=== PATIENT | male | born 1990 | race Caucasian/White ===

== ENCOUNTER → 2020-09-02 13:59 | Outpatient (REF) | payer MEDICAID, SELFPAY | LOC: HO.SL 13:59 | PROVIDERS: PCP Internal Medicine Geriatric Medicine; Visit Provider Internal Medicine Geriatric Medicine | DX: Z13.89 Encounter for screening for other disorder (principal) ==

== ENCOUNTER 2021-06-04 08:59 | Emergency (ER) | payer MEDICAID, SELFPAY | END 2021-06-04 11:07 | disposition left against medical advice (07) | PROVIDERS: Emergency Provider Emergency Medicine; PCP Internal Medicine Geriatric Medicine | DX: H92.03 Otalgia, bilateral (principal) ==

== ENCOUNTER 2021-12-10 12:16 | Emergency (ER) | payer MEDICAID, SELFPAY ==
[2021-12-10 12:39] VITALS: BP 167/104; PULSE 93; RESP 18; TEMP 36.8; O2SAT 97; BMI 38.6
[2021-12-10] MEDS: Ibuprofen 600 MG TABLET PO (15:39)
[2021-12-10] MEDS: Amoxicillin 500 MG CAPSULE PO (15:39)
--- NOTE | 2021-12-10 18:46 | ED.EAR ---
HPI - Ear Problem General Chief complaint: Ear Problems Stated complaint: ear pain Time Seen by Provider: 12/10/21 15:23 History of Present Illness HPI Narrative: Patient complains of left ear pain for 3 days getting worse, no fever no headache no dizziness no weakness no sinus congestion Related Data Previous Rx's Medication Instructions Recorded acetaminophen 500 mg tablet 1,000 mg PO QID PRN pain #30 tabs 12/10/21 amoxicillin 500 mg tablet 500 mg PO TID 7 days #21 tabs 12/10/21 ciprofloxacin 0.3 %-dexamethasone 4 drp otic (ears) BID 7 days #7.5 12/10/21 0.1 % ear drops,suspension mL ibuprofen 600 mg tablet 600 mg PO Q6H PRN pain #20 tabs 12/10/21 oxycodone 5 mg tablet 5 mg PO Q6H PRN pain #10 tabs 12/10/21 oxycodone 5 mg tablet 5 mg PO Q6H PRN pain #14 tabs 12/10/21 Allergies Allergy/AdvReac Type Severity Reaction Status Date / Time No Known Allergies Allergy Unverified 02/19/20 18:31 Review of Systems Review of Systems: Positive for left ear pain Negatives are no fever no chills no dizziness weakness no headache no fainting no feeling faint no sinus congestion no sinus pain no sore throat no cough no runny nose no difficulty breathing or swallowing no numbness weakness or tingling Yes all other systems are reviewed and are negative [facility] Past Medical History Source: nursing notes reviewed Social History Social History Advance Directives: No Advance Directives Information Provided: No Physical Exam Vital Signs: Vital Signs: Last Vital Signs Temp 98.2 F 12/10/21 12:39 Pulse 93 12/10/21 12:39 Resp 18 12/10/21 12:39 BP 167/104 H 12/10/21 12:39 Pulse Ox 97 12/10/21 12:39 O2 Del Method 12/10/21 12:39 BMI result Body Mass Index 38.6 General appearance no distress Eyes no discharge no redness The ears the right ear is normal, left ear showed a narrowed canal with a small portion of tympanic membrane visible which was not red, the canal was red and inflamed, there was pain with movement of the ear and pressure on the tragus, no mastoid redness or tenderness no surrounding erythema The sinuses are nontender The pharynx is clear no redness swelling or exudate Neck is supple Respiratory no distress Skin no rashes Course Course Course Narrative: Patient with otitis externa is treated with Ciprodex, amoxicillin and analgesics and well-appearing patient is discharged Discharge Plan Discharge Clinical Impression: Otitis externa Patient Disposition: Home, Self-Care Additional Instructions: Your left ear canal was very swollen so the main treatment is the drops I will prescribe, as well as the antibiotic Motrin and Tylenol for pain as needed, and if your home you can take the oxycodone which is a narcotic which can be sedating so no driving when you take oxycodone Follow with primary doctor if not better in 2 or 3 days, if you are getting frequent ear infections he may refer you to an 2 year olds preschool teacher Return any time for any worse condition or any concerns to the ER specially if you develop fever or worse pain and swelling in the ear Your blood pressure was 167/104 which may be from the fact that your in pain but it also may be that her blood pressure medications are not working as well as they used to Best plan is get a home blood pressure cuff, keep a log of the readings and follow with your doctor within a few weeks for further evaluation of blood pressure Prescriptions: New amoxicillin 500 mg tablet 500 mg PO TID 7 Days Qty: 21 0RF ibuprofen 600 mg tablet 600 mg PO Q6H PRN (Reason: pain) Qty: 20 0RF ciprofloxacin-dexamethasone 0.3-0.1 % drops,suspension 4 drp otic (ears) BID 7 Days Qty: 7.5 0RF acetaminophen 500 mg tablet 1,000 mg PO QID PRN (Reason: pain) Qty: 30 0RF oxycodone 5 mg tablet 5 mg PO Q6H PRN (Reason: pain) Qty: 10 0RF Rx Instructions: Partial Fill upon patient request. oxycodone 5 mg tablet 5 mg PO Q6H PRN (Reason: pain) Qty: 14 0RF Rx Instructions: Partial Fill upon patient request. Narcotic, no driving for 6 hours after taking Interventions: ED Discharge Assessment Last Done: 12/10/21 15:45 Discharge Date/Time: 12/10/21 15:46
== END 2021-12-10 15:46 | disposition home or self-care (01) ==
PROVIDERS: Emergency Provider Emergency Medicine
DX: H60.92 Unspecified otitis externa, left ear (principal)
CPT/HCPCS: 99283

== ENCOUNTER 2024-01-07 19:13 | Emergency (ER) | payer BC, SELFPAY ==
--- NOTE | ~2024-01-07 | CT_ITS ---
EXAMINATION: CT HEAD WITHOUT CONTRAST CLINICAL INFORMATION: Headache. Hypertension. COMPARISON: None available. TECHNIQUE: Contiguous axial imaging was performed from the skull base to vertex without intravenous administration of contrast. This CT examination was performed using dose optimization techniques as appropriate, variously including the following: *Automated exposure control *Adjustment of mA and/or kV according to patient size (this includes techniques or standardized protocols for targeted exams where dose is matched to indication/reason for exam; i.e. extremities or head) *Use of iterative reconstruction technique DLP: 705 mGy-cm FINDINGS: The lateral, third and fourth ventricles are normally outlined. The cortical sulci and basal cisterns are normally out well. There is no acute territorial defect, hemorrhage or midline shift. The extra-axial spaces are unremarkable. Calvarium/scalp: Intact. Maxillofacial sinuses and mastoids: Clear as visualized. CT/CT head/brain wo IV con IMPRESSION: No acute intracranial pathology.
[2024-01-07 20:22] VITALS: BP 178/108; PULSE 94; RESP 16; TEMP 37; O2SAT 99; BMI 41.8
--- NOTE | 2024-01-07 20:33 | ED.GENADULT ---
HPI - General Adult General Chief complaint: General Medical Stated complaint: HBP & headache Time Seen by Provider: 01/08/24 01:35 Source: patient Mode of arrival: ambulatory Limitations: no limitations History of Present Illness ED Provider: edgardo CHOWDHURY narrative: Patient is 33 years old with history of hypertension for about 2 years for last 1 month not taking his amlodipine 5 mg as he supposed to did not take his medicine for last 1 week today since afternoon noticed headache heaviness checked his blood pressure was elevated to 188/118, no nausea no vomiting no fever or chills no chest pain no blurred vision no urinary discomfort does complain of headache which is diffuse patient took 10 mg of amlodipine at around 17:00 on arrival blood pressure 170/108 Related Data Previous Rx's ?Medication ?Instructions ?Recorded acetaminophen 500 mg tablet 1,000 mg (2 x 500 mg) PO QID PRN 12/10/21 pain #30 tabs amoxicillin 500 mg tablet 500 mg PO TID 7 days #21 tabs 12/10/21 ciprofloxacin 0.3 %-dexamethasone 4 drp otic (ears) BID 7 days #7.5 12/10/21 0.1 % ear drops,suspension mL ibuprofen 600 mg tablet 600 mg PO Q6H PRN pain #20 tabs 12/10/21 oxycodone 5 mg tablet 5 mg PO Q6H PRN pain #10 tabs 12/10/21 oxycodone 5 mg tablet 5 mg PO Q6H PRN pain #14 tabs 12/10/21 amlodipine 10 mg tablet 10 mg PO DAILY #90 tabs 01/08/24 losartan 50 mg-hydrochlorothiazide 1 tab PO DAILY #90 tabs 01/08/24 12.5 mg tablet Allergies Allergy/AdvReac Type Severity Reaction Status Date / Time No Known Allergies Allergy Verified 01/07/24 20:25 Review of Systems Review of Systems: Yes all other systems are reviewed and are negative PMFSH Social History Social History Advance Directives: No Advance Directives Information Provided: No Physical Exam ED Vital Signs: Vital Signs - 24 hr 01/07/24 20:22 01/08/24 00:50 01/08/24 01:59 Temperature 98.6 F 98 F Pulse Rate 94 82 79 Respiratory Rate 16 16 17 Blood Pressure 178/108 H 171/114 H 181/115 H Pulse Oximetry 99 98 96 Oxygen Delivery Method Room Air Room Air Room Air 01/08/24 02:26 01/08/24 03:04 Temperature 98 F Pulse Rate 76 76 Respiratory Rate 17 17 Blood Pressure 165/100 H 165/100 H Pulse Oximetry 98 98 Oxygen Delivery Method Room Air BMI result Body Mass Index 41.8 Appearance: Alert. Oriented X3. No acute distress. Eyes: PERRLA, No Nystagmus ENT: Pharynx normal. Oral Mucosa moist Neck: Normal inspection. Neck supple. CVS: Normal heart rate and rhythm. Pulses normal. Respiratory: No respiratory distress. Equal air entry bilateral, no wheezing/rales/rhonchi Abdomen: Soft and nontender. Bowel sounds are present, no mass palpable, no CVA tenderness Skin: Skin warm and dry. Normal skin color. Normal skin turgor. Extremities: No lower extremity edema. No calf tenderness Neuro: Oriented X 3. No motor deficit. No sensory deficit.No cerebellar signs , cranial nerves II-XII intact Course Course Course Narrative: RME: done by CRISTIAN Hui. 33-year-old male presents ED for elevated blood pressure and headache. Patient states at home systolic was 190/124. Patient admits to not being compliant with his high blood pressure medication. NIH score is 0. Negative for neuro deficits. Labs EKG ordered Medications Administered Discontinued Medications Generic Name Dose Route Start Last Admin Trade Name Freq PRN Reason Stop Dose Admin Clonidine HCl 0.2 mg 01/08/24 01:42 01/08/24 02:01 Clonidine Hcl 0.2 Mg Tablet PO 01/08/24 01:43 0.2 mg ONCE ONE Administration Protocol Losartan Potassium 50 mg 01/08/24 01:42 01/08/24 02:01 Losartan Potassium 50 Mg Tablet PO 01/08/24 01:43 50 mg ONCE ONE Administration Protocol Medical Decision Making Medical Decision Making [facility] Narrative: Patient's accelerated hypertension secondary noncompliant to his idea hypotensive medication had slight headache no nausea no vomiting CT head was negative patient's blood pressure improved after giving losartan and clonidine patient patient re educated and reinforced about importance of taking his medications on time will add losartan to his regimen Differential Diagnosis Differential Diagnoses: The differential diagnosis associated with the presentation includes Accelerated hypertension/subarachnoid hemorrhage/ Admission/Observation Consideration of admission/observation: Escalation of care including admission/observation considered Lab Data MDM Lab Attestation statement: I reviewed the patient's lab results. 01/07/24 20:51 01/07/24 20:51 Labs: Lab Results 01/07/24 Range/Units 20:51 WBC 8.3 (4.8-10.8) X10*3/uL RBC 5.12 (4.60-5.80) X10*6/uL Hgb 14.6 (14.0-18.0) g/dl Hct 41.2 L (42.0-52.0) % MCV 80.5 (80.0-98.0) fL MCH 28.5 (27.0-33.0) pg MCHC 35.4 (31.0-36.0) g/dl RDW 12.6 (11.0-16.0) % Plt Count 219 (160-400) X10*3/uL MPV 10.3 (9.4-12.4) fL Immature Gran % (Auto) 0.5 H (0.0-0.4) % Neut % (Auto) 53.8 (45-73) % Lymph % (Auto) 32.8 (20-40) % [place] % (Auto) 8.4 (2-11) % Eos % (Auto) 3.4 (0-4) % Baso % (Auto) 1.1 (0-2) % Lymph # (Auto) 2.7 (1.2-4.9) X10*3/uL [place] # (Auto) 0.7 (0.1-1.2) X10*3/uL Eos # (Auto) 0.3 (0.0-0.4) X10*3/uL Baso # (Auto) 0.1 (0.0-0.2) X10*3/uL Abs Immat Gran (auto) 0.04 H (0.00-0.03) X10*3/uL Absolute Neuts (auto) 4.5 (2.0-8.3) x10*3/uL Absolute Nucleated RBC 0.000 (0.0-0.012) X10*3/uL Nucleated RBC % (auto) 0.0 (0.0-0.2) /100WBC PT 11.7 (11.1-13.3) SEC INR 1.0 (0.9-1.1) APTT 29.4 (26.0-36.8) SEC Sodium 137 (135-145) mmol/L Potassium 4.2 (3.3-5.1) mmol/L Chloride 107 (96-108) mmol/L Carbon Dioxide 21 L (22-29) mmol/L Anion Gap 13 (12-20) BUN 19 H (9-16) mg/dL Creatinine 1.09 (0.5-1.4) mg/dL Estim Creat Clear Calc 122.8 Estimated GFR > 60 Random Glucose 135 H (60-115) mg/dL Calcium 8.8 (8.4-10.2) mg/dL Total Bilirubin 0.2 (0.0-1.0) mg/dL AST 22 (5-37) U/L ALT 30 (0-40) U/L Alkaline Phosphatase 77 (39-117) U/L Troponin I High Sens < 2.7 (<3.5-35.0) ng/L Total Protein 7.6 (6.5-8.0) g/dL Albumin 3.9 (3.5-5.0) g/dL Independent Interpretation I performed an independent interpretation of an: EKG and CT Scan Interpretation: Normal sinus rhythm heart rate 89 beats per minute normal interval normal axis no acute ST T wave changes no acute ischemia Radiology Impression Discussion of test interpretation with radiology: I have reviewed the radiologist's reading. Radiologist Impression: Negative for acute Discharge Plan Discharge Clinical Impression: Hypertension, uncontrolled Patient Disposition: Home, Self-Care Instructions: Chronic Hypertension (ED) Additional Instructions: Decrease salt intake Increase the dose of amlodipine to 10 mg daily Start taking losartan/hctz 50/12.5 mg daily Follow with your PCP Check your blood pressure before taking the medicine and before going to bed it should be less than 135/85 Prescriptions: New amlodipine 10 mg tablet 10 mg PO DAILY Qty: 90 0RF losartan-hydrochlorothiazide 50-12.5 mg tablet 1 tab PO DAILY Qty: 90 0RF No Action amoxicillin 500 mg tablet 500 mg PO TID 7 Days Qty: 21 0RF ibuprofen 600 mg tablet 600 mg PO Q6H PRN (Reason: pain) Qty: 20 0RF ciprofloxacin-dexamethasone 0.3-0.1 % drops,suspension 4 drp otic (ears) BID 7 Days Qty: 7.5 0RF acetaminophen 500 mg tablet 1,000 mg PO QID PRN (Reason: pain) Qty: 30 0RF oxycodone 5 mg tablet 5 mg PO Q6H PRN (Reason: pain) Qty: 10 0RF Rx Instructions: Partial Fill upon patient request. oxycodone 5 mg tablet 5 mg PO Q6H PRN (Reason: pain) Qty: 14 0RF Rx Instructions: Partial Fill upon patient request. Narcotic, no driving for 6 hours after taking Interventions: ED Discharge Assessment Last Done: 01/08/24 03:04 Discharge Date/Time: 01/08/24 03:05 Print Language: [place]
--- NOTE | 2024-01-07 20:34 | ECG_ITS ---
Test Reason : HTN Blood Pressure : / mmHG Vent. Rate : 089 BPM Atrial Rate : 089 BPM P-R Int : 172 ms QRS Dur : 098 ms QT Int : 360 ms P-R-T Axes : 039 021 017 degrees QTc Int : 438 ms Normal sinus rhythm Normal ECG No previous ECGs available Referred By: Lj Hui Electronically Signed By:MAREN VARGAS MD
[2024-01-07 20:55] LABS: MANUAL DIFF FLAG NO
[2024-01-07 20:57] LABS: Basophils Absolute Auto 0.1 X10*3/uL (0.0-0.2); Basophils Percent Auto 1.1 % (0-2); Eosinophils Absolute Auto 0.3 X10*3/uL (0.0-0.4); Eosinophils Percent Auto 3.4 % (0-4); Hematocrit 41.2 % (42.0-52.0); Hemoglobin 14.6 g/dl (14.0-18.0); Imm Gran Abs Auto 0.04 X10*3/uL (0.00-0.03); Imm Gran Pct Auto 0.5 % (0.0-0.4); Lymphocytes Absolute Auto 2.7 X10*3/uL (1.2-4.9); Lymphocytes Percent Auto 32.8 % (20-40); Mean Corpuscular HGB Conc 35.4 g/dl (31.0-36.0); Mean Corpuscular Hemoglobin 28.5 pg (27.0-33.0); Mean Corpuscular Volume 80.5 fL (80.0-98.0); Mean Platelet Volume 10.3 fL (9.4-12.4); Monocytes Absolute Auto 0.7 X10*3/uL (0.1-1.2); Monocytes Percent Auto 8.4 % (2-11); Neutrophils Absolute Auto 4.5 x10*3/uL (2.0-8.3); Neutrophils Percent Auto 53.8 % (45-73); Platelet Count 219 X10*3/uL (160-400); Red Blood Count 5.12 X10*6/uL (4.60-5.80); Red Cell Distribution Width 12.6 % (11.0-16.0); White Blood Count 8.3 X10*3/uL (4.8-10.8)
[2024-01-07 21:02] LABS: Prothrombin Time 11.7 SEC (11.1-13.3)
[2024-01-07 21:05] LABS: Partial Thromboplastin Time 29.4 SEC (26.0-36.8)
[2024-01-07 21:21] LABS: Troponin-I High Sensitivity < 2.7 ng/L (<3.5-35.0)
[2024-01-07 21:50] LABS: Anion Gap 13 (12-20)
[2024-01-07 21:54] LABS: Alanine Aminotransferase 30 U/L (0-40); Albumin Level 3.9 g/dL (3.5-5.0); Alkaline Phosphatase 77 U/L (39-117); Aspartate Amino Transferase 22 U/L (5-37); Bilirubin Total 0.2 mg/dL (0.0-1.0); Blood Urea Nitrogen 19 mg/dL (9-16); Calcium 8.8 mg/dL (8.4-10.2); Carbon Dioxide 21 mmol/L (22-29); Chloride 107 mmol/L (96-108); Creatinine Clr Calc Pharmacy 122.8; Estimated Glomerular Filt Rate > 60; Glucose Random 135 mg/dL (60-115); Potassium 4.2 mmol/L (3.3-5.1); Sodium 137 mmol/L (135-145); Total Protein 7.6 g/dL (6.5-8.0)
[2024-01-08 00:50] VITALS: BP 171/114; PULSE 82; RESP 16; TEMP 36.6; O2SAT 98
[2024-01-08 01:59] VITALS: BP 181/115; PULSE 79; RESP 17; O2SAT 96
[2024-01-08] MEDS: Losartan Potassium 50 MG TABLET PO (02:01)
[2024-01-08] MEDS: cloNIDine HCL 0.2 MG TABLET PO (02:01)
[2024-01-08 02:26] VITALS: BP 165/100; PULSE 76; RESP 17; O2SAT 98
[2024-01-08 03:04] VITALS: BP 165/100; PULSE 76; RESP 17; TEMP 36.6; O2SAT 98
== END 2024-01-08 03:05 | disposition home or self-care (01) ==
PROVIDERS: Physician Assistant; Emergency Provider Internal Medicine; PCP Internal Medicine Geriatric Medicine
DX: R51.9 Headache, unspecified (principal); I10 Essential (primary) hypertension; Z79.899 Other long term (current) drug therapy; Z91.148 Patient's other noncompliance with medication regimen for other reason; Z51.81 Encounter for therapeutic drug level monitoring
CPT/HCPCS: 36415; 70450; 80053; 84484; 85025; 85610; 85730; 93005; 99284

== ENCOUNTER → 2024-01-07 20:34 | Outpatient (BNV) | payer BC, SELFPAY | PROVIDERS: Emergency Provider Internal Medicine; PCP Internal Medicine Geriatric Medicine; Visit Provider Internal Medicine Cardiovascular Disease | DX: I10 Essential (primary) hypertension (principal) | CPT/HCPCS: 93010 ==

== ENCOUNTER 2024-10-03 10:14 | Outpatient (REF) | payer SELFPAY ==
[2024-10-03 11:08] LABS: MANUAL DIFF FLAG NO
--- OUTSIDE RECORDS SUMMARY | 2024-10-03 11:17 | XMS_ITS | Encounter Summary ---
Author Organization [employer] Address [address] [place] [address] [address] [place] [address] Care Team Providers Care Instrumentation Supervisor Name Role Phone Romeo Chakraborty MD Primary Care Provider [phone] Reason for Referral * Consultation (Routine) - Pending Review Specialty Diagnoses / Procedures Referred By Juanjo t Referred To Contact Sleep Medicine Diagnoses Hypersomnia Loud snoring Tiredness Romeo Chakraborty MD [address] [place] [id number] Phone: tel: fax: Referral ID Status Reason Start Date Expiration Date Visits Requested Visits Authorized [id number] Pending Review Specialty Services Required 10/03/2024 10/03/2025 1 1 Reason for Visit * Reason Comments Hypertension Encounter Details Date Type Department Care Team ([facility] st Contact Info) Description 10/03/2024 10:00 AM EDT Office Visit [facility] MEDICINE [address] [place] [address] [id number] Romeo Chakraborty MD [address] [place], [place] [phone] Primary hypertension (Primary Dx); Tiredness; Hypersomnia; Loud snoring; Prediabetes; Elevated lipids Social History Tobacco Use Types Packs/Day Years Used Date Smoking Tobacco: Never Smokeless Tobacco: Never Tobacco Cessation:Counseling Given: Not Answered Alcohol Use Standard Drinks/Week Comments Not Currently 0 (1 standard drink = 0.6 oz pur e alcohol) occassional Depression Answer Date Recorded Patient Health Questionnaire-9 Score 12 10/03/2024 Patient Health Questionnaire-9 Score 12 10/03/2024 Last PHQ-9: Questionnaire Data Not on file 0 10/03/2024 Housing Stability Answer Date Recorded What is your housing situation today? I have jay thompson 10/03/[address] you li ve. Do you have problems with any of the following? None of the above 10/03/2024 Food Insecurity Answer Date Recorded Within the past 12 months, y ou worried that your food would run out before you got money to buy more: Never True 10/03/2024 Within the past 12 months,th e food you bought just didn't last and you didn't have enough money to get more: Never True 07/2024 Transportation Answer Date Recorded In the past 12 months, has l ack of transportation kept you from medical appts, meetings, work or from getting things needed for daily living? No 10/03/2024 Utilities Answer Date Recorded In the past 12 months, has t he electric, gas, oil or water company threatened to shut off services in your home? Yes 10/03/2024 Depression Answer Date Recorded Patient Health Questionnaire-2 Score 0 10/03/2024 Internet Access Answer Date Recorded Internet Access Q1 Yes 10/03/2024 Internet Access Q2 Not on file 10/03/2024 Sex and Gender Information Value Date Recorded Sex Assigned at Male 04/03/2022 10:35 AM EDT Legal Sex Male 10:35 AM EDT Gender Identity Male 04/03/2022 10:35 AM EDT Sexual Orientation Straight 04/03/2022 10 :35 AM EDT documented as of this encounter Last Filed Vital Signs Vital Sign Reading Time Taken Comments Blood Pressure 146/97 10/03/2024 9:45 AM EDT Pulse 98 10/03/2024 9:45 AM EDT Temperature 36.2 ??C (97.1 ??F) 10/03/2024 9:45 AM ED T Respiratory Rate 18 10/03/2024 9:45 AM EDT Oxygen Saturation 97% 10/03/2024 9:45 AM EDT Inhaled Oxygen Concentration - - Weight 127 kg (279 lb 3.2 oz) 10/03/2024 9:45 AM EDT Height 172.7 cm (5' 8 ) 10/03/2024 9:45 AM EDT Body Mass Index 42.45 10/03/2024 9:45 AM EDT documented in this encounter Progress Notes * Romeo Chakraborty MD - 10/03/2024 10:00 AM EDT Subjective Patient ID: Neftali Soler is a 34 y.o. male who presents for Hypertension. The patient is returning to medical care. He was lost to follow-up for about a year because he did not have medical insurance. He is morbidly obese, hypertensive, prediabetes, and clinically he has PRIYA. He has not been using his medications regularly. We never got the results of the home sleep testhe had in the past. Today his BP is elevated. The patient has typical history of obstructive sleep apnea including snoring, tiredness, daytime sleepiness, lack of refreshing sleep, witnessed apnea overnight and occasional morning headaches. Review of Systems Constitutional: Negative for chills, fatigue and fever. HENT: Negative for sore throat. Respiratory: Negative for cough, chest tightness and shortness of breath. See HPI Cardiovascular: Negative for chest pain, palpitations and leg swelling. Gastrointestinal: Negative for abdominal pain and blood in stool. Visit Vitals BP (!) 146/97 (BP Location: Right arm, Patient Position: Sitting, BP Cuff Size: Large adult) Pulse 98 Temp 97.1 ??F (36.2 ??C) (Temporal) Resp 18 Ht 5' 8 (1.727 m) Wt 279 lb 3.2 oz (127 kg) SpO2 97% BMI 42.45 kg/m?? Smoking Status Never BSA 2.47 m?? Objective Physical Exam Constitutional: Appearance: Normal appearance. HENT: Head: Comments: Patient has a large neck and crowded oropharynx. He has darkening of the posterior neck skin consistent with acanthosis nigricans. Cardiovascular: Rate and Rhythm: Normal rate and regular rhythm. Heart sounds: No murmur heard. Pulmonary: Effort: Pulmonary effort is normal. No respiratory distress. Breath sounds: No wheezing, rhonchi or rales. Abdominal: Palpations: Abdomen is soft. Tenderness: There is no abdominal tenderness. Musculoskeletal: Right lower leg: No edema. Left lower leg: No edema. Neurological: Mental Status: He is alert. Assessment/Plan Diagnoses and all orders for this visit: Primary hypertension Comments: I will restart the patient on antihypertensives and statin for primary prevention of cardiovasculardisease. I will refer the patient to sleep medicine at [facility] I recommended evaluation with fasting blood work listed below and further recommendation based on the results. Orders: - Comprehensive Metabolic Panel; Future - Hemoglobin A1c; Future - Lipid Panel, Standard; Future - TSH W/Reflex to FT4; Future - losartan-hydroCHLOROthiazide (Hyzaar) 50-12.5 MG tablet; Take 1 tablet by mouth Once per day. - amLODIPine (Norvasc) 10 MG tablet; Take 1 tablet (10 mg) by mouth Once per day. Tiredness - CBC auto differential; Future - Referral to Sleep Medicine; Future Hypersomnia - Comprehensive Metabolic Panel; Future - Hemoglobin A1c; Future - Lipid Panel, Standard; Future - TSH W/Reflex to FT4; Future - Referral to Sleep Medicine; Future Loud snoring - Comprehensive Metabolic Panel; Future - Hemoglobin A1c; Future - Lipid Panel, Standard; Future - TSH W/Reflex to FT4; Future - Referral to Sleep Medicine; Future Prediabetes - Comprehensive Metabolic Panel; Future - Hemoglobin A1c; Future - Lipid Panel, Standard; Future - TSH W/Reflex to FT4; Future Elevated lipids - Comprehensive Metabolic Panel; Future - Hemoglobin A1c; Future - Lipid Panel, Standard; Future - TSH W/Reflex to FT4; Future - atorvastatin (Lipitor) 20 MG tablet; Take 1 tablet (20 mg) by mouth Once per day. documented in this encounter Plan of Treatment Scheduled Orders Name Type Priority Associated Diagnoses Orde r Schedule Comprehensive Metabolic Panel Lab Routine Hypersomnia Loud snoring Primary hypertension Prediabetes Elevated lipids Expected: 10/03/2024 (Approximate), Expires: 10/03/2025 Hemoglobin A1c Lab Routine Hypersomnia Loud snoring Primary hypertension Prediabetes Elevated lipids Expected: 10/03/2024 (Approximate), Expires: 10/03/2025 Lipid Panel, Standard Lab Routine Hypersomnia Loud snoring Primary hypertension Prediabetes Elevated lipids Expected: 10/03/2024 (Approximate), Expires: 10/03/2025 TSH W/Reflex to FT4 Lab Routine Hypersomnia Loud snoring Primary hypertension Prediabetes Elevated lipids Expected: 10/03/2024 (Approximate), Expires: 10/03/2025 CBC auto differential Lab Routine Tiredness Expected: 10/03/2024 (Approximate), Expires: 10/03/2025 Scheduled Referrals Name Type Priority Associated Diagnoses Orde r Schedule Referral to Sleep Medicine Outpatient Referral Routine Hypersomnia Loud snoring Tiredness Expected: 10/03/2024 (Approximate), Expires: 10/03/2025 documented as of this encounter Visit Diagnoses Diagnosis Primary hypertension- Primary Unspecified essential hypertension Tiredness Other malaise and fatigue Hypersomnia Hypersomnia, unspecified Loud snoring Prediabetes Other abnormal glucose Elevated lipids documented in this encounter Additional Health Concerns Assessment Noted Time PHQ-9 Depression Total Score: 12 025 10:13 AM EDT documented as of this encounter Care Teams Instrumentation Supervisor Relationship Specialty Start Date End Date Name, MD Romeo [address] [place] [address] PCP - General Family Medicine 07/31/18 documented as of this encounter
--- OUTSIDE RECORDS SUMMARY | 2024-10-03 11:17 | XMS_ITS | Encounter Summary ---
Author Organization [employer] Address [address] [facility] [address] [place] [address] Care Team Providers Care Associate Professor Of Economics Name Role Phone Name, Romeo MCKINLEY Primary Care Provider [phone] Encounter Details Date Type Department Care Team (Latest Contact Info) Description 10/02/2024 Travel Social History Tobacco Use Types Packs/Day Years Used Date Smoking Tobacco: Never Smokeless Tobacco: Never Alcohol Use Standard Drinks/Week Comments Yes 0 (1 standard drink = 0.6 oz [...] AM EDT documented as of this encounter Plan of Treatment Not on file documented as of this encounter Visit Diagnoses Not on filedocumented in this encounter Care Teams Associate Professor Of Economics Relationship Specialty Start Date End Date Name, MD Romeo [address] [place] [id number] PCP - General Family Medicine 07/31/18 documented as of this encounter
--- OUTSIDE RECORDS SUMMARY | 2024-10-03 11:17 | XMS_ITS | Clinical Summary ---
Author Organization [employer] Address [address] [facility] [address] [place] [address] Care Team Providers Care Courtesy Bus Driver Name Role Phone Name, Romeo MCKINLEY Primary Care Provider [phone] Allergies No known active allergies Medications losartan-hydroCH LOROthiazide (Hyzaar) 50-12.5 MG tabletIndication s:Primary hypertension Take 1 tablet by mouth Once per day. 30 tablet 11 10/04/19 25 Active amLODIPine (Norvasc) 10 MG tabletIndication s:Primary hypertension Take 1 tablet (10 mg) by mouth Once per day. 30 tablet 10/04/19 25 Active atorvastatin (Lipitor) 20 MG tabletIndication s:Elevated lipids Take 1 tablet (20 mg) by mouth Once per day. 30 tablet 10/04/19 25 025 Active atorvastatin (Lipitor) 20 MG tabletIndication s:High cholesterol Take 1 tablet (20 mg) by mouth in the morning. 90 tablet 3 12/19/19 23 025 Discontinued(Re order (will not trigger notification to Pharmacy)) losartan-hydroCH LOROthiazide (Hyzaar) 50-12.5 MG tablet Take 1 tablet by mouth Once per day. 01/08/20 24 025 Discontinued(Re order (will not trigger notification to Pharmacy)) amLODIPine (Norvasc) 10 MG tablet Take 10 mg by mouth Once per day. 01/08/20 24 025 Discontinued(Re order (will not trigger notification to Pharmacy)) amLODIPine (Norvasc) 10 MG tabletIndication s:Primary hypertension Take 1 tablet (10 mg) by mouth Once per day. 30 tablet 11 09/06/19 25 025 Discontinued(Re order (will not trigger notification to Pharmacy)) losartan-hydroCH LOROthiazide (Hyzaar) 50-12.5 MG tabletIndication s:Primary hypertension Take 1 tablet by mouth Once per day. 30 tablet 11 09/06/19 25 025 Discontinued(Re order (will not trigger notification to Pharmacy)) Active Problems Problem Noted Date Diagnosed Date Prediabetes 12/18/2022 Primary hypertension 07/25/2022 Morbid obesity 07/31/2018 Elevated lipids 07/31/2018 Encounters Date Type Department Care Team Description 10/03/2024 10:00 AM EDT Office Visit [facility] [address] [place] [id number] Romeo Chakraborty MD Primary hypertension (Primary Dx); Tiredness; Hypersomnia; Loud snoring; Prediabetes; Elevated lipids 10/03/2024 Travel 10/02/2024 Travel 10/01/2024 Telephone [facility] [address] [place], [place] [id number] Nicolasa Caldwell MA Chart Prep 09/04/2024 Refill [facility] [address] [place], [place] [phone] Romeo Chakraborty MD Primary hypertension (Primary Dx) from Last 3 Months Immunizations Name Administration Dates Next Due Influenza injectable quadrivalent preservative f ree 07/31/2018 Tdap 07/31/2018,06/24/2014 Social History Tobacco Use Types Packs/Day Years [...] Orientation Straight 04/03/2022 10 :35 AM EDT Last Filed Vital Signs Vital Sign Reading [...] Mass Index 42.45 10/03/2024 9:45 AM EDT Plan of Treatment Health Maintenance Due Date Last Done Comments HIV Screening 1989 Family Planning (PISQ) 2004 Hepatitis C Screening 2007 Hepatitis B Vaccines (1 of 3 - 19+ 3-dose series) 2008 COVID-19 Vaccine ( season) 2024 12/24/2020, 11/30/2020 Influenza Vaccine (#1) 2024 07/31/2018 Diabetes: Hemoglobin A1C 01/22/2025 024, 09/08/2022, 04/03/2022, Additional history exists Alcohol/Substance Use Screening 10/03/2025 10/03/2024 Depression Screening 10/03/2025 10/03/2024, 10/04/19 SDOH Screening 10/03/2025 10/03/2024 Tobacco Screening 10/03/2025 10/03/2024 Lipid Panel 09/09/2027 09/08/2022, 03/06, 12/23/2020, Additional history exists DTaP/Tdap/Td Vaccines (3 - Td or Tdap) 07/31/2028 07/31/2018, 06/24/2014 Zoster Vaccines (1 of 2) 2039 RSV Patients and Patients Aged 60 years or older (1 - 1-dose 75+ series) 2064 HIB Vaccines Aged Out No longer eligi ble based on patient's age to complete this topic HPV Vaccines Aged Out No longer eligi ble based on patient's age to complete this topic Hepatitis A Vaccines Aged Out No long er eligible based on patient's age to complete this topic IPV Vaccines Aged Out No longer eligi ble based on patient's age to complete this topic Meningococcal Vaccine Aged Out No alba kalina eligible based on patient's age to complete this topic Pneumococcal Vaccine: Pediatrics (0 to 5 Years) and At-Risk Patients (6 to 49) Years) Aged Out No longer eligible based on patient's age to complete this topic RSV under 20 months Aged Out No longe r eligible based on patient's age to complete this topic Rotavirus Vaccines Aged Out No longer eligible based on patient's age to complete this topic Procedures Procedure Name Priority Date/Time Associated Diagnosis Comments POCT GLYCATED HEMOGLOBIN, TOTAL Routine 01/23/2024 3:55 PM EDT Prediabetes LIPID PANEL, STANDARD Routine 09/08/2022 8:15 AM EDT High cholesterol Primary hypertension Morbid obesity (CMS/HCC) from Last 3 Months or Most Recently Relevant to Health Maintenance Results * (ABNORMAL) POCT HGB A1C (01/23/2024 3:55 PM EDT) Hemoglobin A1C 6.3(A) 4.0 - 6.0 % QC Media Lot # [id number] Lot# Expiration Date [id number] Blood 01/23/2024 3:55 PM EDT Romeo Chakraborty MD POINT OF CARE TEST ENTER/EDIT OR DERABLES Final Result * (ABNORMAL) Lipid Panel, Standard (09/08/2022 8:15 AM EDT) Cholesterol, Total 140 <200 mg/dL [facility] HDL Cholesterol 30(L) > OR = 40 mg/dL [facility] Triglycerides 152(H) <150 mg/dL [facility] LDL Cholesterol 85 mg/dL (calc) [facility] Comment: Reference range: <100 Desirable range <100 mg/dL for primary prevention; ?? <70 mg/dL for patients with CHD or diabetic patients with > or = 2 CHD risk factors. LDL-C is now calculated using the Wei-Agee calculation, which is a validated novel method providing better accuracy than the Friedewald equation in the estimation of LDL-C. Wei CAMPBELL et al. STAR. 2013;310(19): 9950-0213 (http://education.TheCommentor.Vanatec/faq/HUG077) Chol/HDLC Ratio 4.7 <5.0 (calc) [facility] Non-HDL Cholesterol 110 <130 mg/dL (calc) [facility] Comment: For patients with diabetes plus 1 major ASCVD risk factor, treating to a non-HDL-C goal of <100 mg/dL (LDL-C of <70 mg/dL) is considered a therapeutic option. Blood Venous blood specimen / Unknown 09/08/2022 8:15 AM EDT 09/08/2022 8:15 AM EDT Narrative [facility] - 09/08/2022 8:59 PM EDT FASTING:YES FASTING: YES us Romeo Chakraborty MD LAB BLOOD ORDERABLES Final Resul t [facility] [address] [facility], [place] [address] [facility] [address] [place] [address] from Last 3 Months or Most Recently Relevant to Health Maintenance Insurance Robi Underwood [place] [facility] * Guarantor: Neftali Soler Account Type Relation to Patient Date of Phone Billing Address Personal/Family Self Robi Underwood [place] * Guarantor: Neftali Soler Account Type Relation to Patient Date of Phone Billing Address Personal/Family Self Robi Underwood [place] Care Teams Courtesy Bus Driver Relationship Specialty Start Date End Date Name, MD Romeo [address] [place] [address] PCP - General Family Medicine 07/31/18
--- OUTSIDE RECORDS SUMMARY | 2024-10-03 11:17 | XMS_ITS | Encounter Summary ---
Author Organization [employer] Address [address] [facility] [address] [place] [address] Care Team Providers Care Extractor Filler Name Role Phone Name, Romeo MCKINLEY Primary Care Provider [phone] Reason for Visit * Reason Onset Date Comments Chart Prep 10/01/2024 Encounter Details Date Type Department Care Team ([facility] st Contact Info) Description 10/01/2024 Telephone [facility] [address] [place] [address] Nicolasa Caldwell MA Chart Prep Social History Tobacco Use Types Packs/Day Years Used Date Smoking Tobacco: Never Smokeless Tobacco: Never Alcohol Use Standard Drinks/Week Comments Yes 0 (1 standard drink = 0.6 oz pur e alcohol) occassional Housing Stability Answer Date Recorded What is your housing situation today? I have jaymaryse thompson 03/30/[address] you li ve. Do you have problems with any of the following? None of the above 03/30/2023 Food Insecurity Answer Date Recorded Within the past 12 months, y ou worried that your food would run out before you got money to buy more: Never True 03/30/2023 Within the past 12 months,th e food you bought just didn't last and you didn't have enough money to get more: Never True Transportation Answer Date Recorded In the past 12 months, has l ack of transportation kept you from medical appts, meetings, work or from getting things needed for daily living? No 03/30/2023 Utilities Answer Date Recorded In the past 12 months, has t he electric, gas, oil or water company threatened to shut off services in your home? No 03/30/2023 Depression Answer Date Recorded Patient Health Questionnaire-2 Score 0 07/25/2022 Sex and Gender Information Value Date Recorded Sex Assigned at Male 04/03/2022 10:35 AM EDT Legal Sex Male 10:35 AM EDT Gender Identity Male 04/03/2022 10:35 AM EDT Sexual Orientation Straight 04/03/2022 10 :35 AM EDT documented as of this encounter Miscellaneous Notes * Telephone Encounter - Nicolasa Caldwell MA - 10/01/2024 9:27 AM EDT Chart Prep Labs: not applicable Images: not applicable Referrals: not applicable Vaccines due: Covid, Flu, and Hep B Screenings: HIV, Hep C Overdue care gaps: SBIRT, SDOH, PHQ-9, Disability screen, and Tobacco documented in this encounter Plan of Treatment Not on file documented as of this encounter Visit Diagnoses Not on filedocumented in this encounter Care Teams Extractor Filler Relationship Specialty Start Date End Date Name, MD Romeo [address] [place] [address] PCP - General Family Medicine 07/31/18 documented as of this encounter
--- OUTSIDE RECORDS SUMMARY | 2024-10-03 11:17 | XMS_ITS | Encounter Summary ---
Author Organization [employer] Address [address] [place] [address] [address] [place] [address] Care Team Providers Care Rug Cleaner Name Role Phone Name, Romeo MCKINLEY Primary Care Provider [phone] Margaret Naidu PharmD Unavailable [phone] Encounter Details Date Type Department Care Team (Late st Contact Info) Description 07/25/2022 Orders Only [facility] [address] [place] [address] Nikky Epps LPN Social History Tobacco Use Types Packs/Day Years Used Date Smoking Tobacco: Never Smokeless Tobacco: Never Depression Answer Date Recorded Patient Health Questionnaire-2 Score 0 07/25/2022 Sex and Gender Information Value Date Recorded Sex Assigned at Male 04/03/2022 10:35 AM EDT Legal Sex Male 10:35 AM EDT Gender Identity Male 04/03/2022 10:35 AM EDT Sexual Orientation Straight 04/03/2022 10 :35 AM EDT COVID-19 Exposure Response Date Recorded In the last 10 days, have yo u been in contact with someone who was confirmed or suspected to have Coronavirus/COVID-19? No / Unsure 07/25/2022 2:48 PM EST documented as of this encounter Plan of Treatment Not on file documented as of this encounter Visit Diagnoses Not on filedocumented in this encounter Care Teams Rug Cleaner Relationship Specialty Start Date End Date Name, MD Romeo [address] [place] [address] PCP - General Family Medicine 07/31/18 Margaret Naidu, PharmD [address] [place] [id number] Pharmacist Internal Medicine 07/05/21 02/14/23 documented as of this encounter
--- OUTSIDE RECORDS SUMMARY | 2024-10-03 11:17 | XMS_ITS | Encounter Summary ---
Author Organization [employer] Address [address] [facility] [address] [place] [address] Care Team Providers Care Labor Representative Name Role Phone Name, Romeo MCKINLEY Primary Care Provider [phone] Encounter Details Date Type Department Care Team (Latest Contact Info) Description 10/03/2024 Travel Social History Tobacco Use Types Packs/Day Years Used Date Smoking Tobacco: Never Smokeless Tobacco: Never Alcohol Use Standard Drinks/Week Comments Not Currently [...] Diagnoses Not on filedocumented in this encounter Additional Health Concerns Assessment Noted Time PHQ-9 Depression Total Score: 12 025 10:13 AM EDT documented as of this encounter Care Teams Labor Representative Relationship Specialty Start Date End Date Name, MD Romeo [address] [place] [address] PCP - General Family Medicine 07/31/18 documented as of this encounter
[2024-10-03 11:19] LABS: Basophils Absolute Auto 0.1 X10*3/uL (0.0-0.2); Basophils Percent Auto 1.4 % (0-2); Eosinophils Absolute Auto 0.1 X10*3/uL (0.0-0.4); Eosinophils Percent Auto 1.6 % (0-4); Hematocrit 47.3 % (42.0-52.0); Hemoglobin 15.3 g/dl (14.0-18.0); Imm Gran Abs Auto 0.02 X10*3/uL (0.00-0.03); Imm Gran Pct Auto 0.3 % (0.0-0.4); Lymphocytes Absolute Auto 2.5 X10*3/uL (1.2-4.9); Lymphocytes Percent Auto 36.7 % (20-40); Mean Corpuscular HGB Conc 32.3 g/dl (31.0-36.0); Mean Corpuscular Volume 80.4 fL (80.0-98.0); Mean Platelet Volume 10.8 fL (9.4-12.4); Monocytes Absolute Auto 0.6 X10*3/uL (0.1-1.2); Monocytes Percent Auto 8.3 % (2-11); Neutrophils Absolute Auto 3.6 x10*3/uL (2.0-8.3); Neutrophils Percent Auto 51.7 % (45-73); Platelet Count 257 X10*3/uL (160-400); Red Blood Count 5.88 X10*6/uL (4.60-5.80); Red Cell Distribution Width 13.5 % (11.0-16.0); White Blood Count 6.9 X10*3/uL (4.8-10.8)
[2024-10-03 11:50] LABS: Estimated Average Glucose 137 mg/dL; Hemoglobin A1C 181.4716 umol/L; Hemoglobin A1c % 6.4 % (<6.0); Total Hemoglobin (HGBA1C) 3874.0602 umol/L
[2024-10-03 11:56] LABS: Alanine Aminotransferase 42 U/L (0-40); Albumin Level 4.2 g/dL (3.5-5.0); Alkaline Phosphatase 85 U/L (39-117); Anion Gap 12 (12-20); Aspartate Amino Transferase 31 U/L (5-37); Bilirubin Total 0.3 mg/dL (0.0-1.0); Blood Urea Nitrogen 20 mg/dL (9-16); Calcium 9.5 mg/dL (8.4-10.2); Carbon Dioxide 28 mmol/L (22-29); Chloride 105 mmol/L (96-108); Cholesterol 209 mg/dL (<200); Estimated Glomerular Filt Rate > 60; Glucose Random 109 mg/dL (60-115); HDL Cholesterol 35 mg/dL (>40); LDL Cholesterol Calculated 135 mg/dL (<100); Potassium 4.2 mmol/L (3.3-5.1); Sodium 141 mmol/L (135-145); Total Protein 8.3 g/dL (6.5-8.0); Triglycerides 198 mg/dL (<150)
== END 2024-10-03 10:15 | disposition home or self-care (01) ==
LOC: HO.HHCL 10:14
PROVIDERS: Visit Provider Internal Medicine Geriatric Medicine
DX: I10 Essential (primary) hypertension (principal); G47.10 Hypersomnia, unspecified; R06.83 Snoring; R73.03 Prediabetes; E78.5 Hyperlipidemia, unspecified; R53.83 Other fatigue
CPT/HCPCS: 36415; 80053; 80061; 83036; 84443; 85025